=== PATIENT | female | born 1965 | race African-American/Black ===

== ENCOUNTER 2016-12-26 18:27 | Emergency (ER) | payer OTHER ==
[~2016-12-26] VITALS: Ht 154.9 cm; Wt 71.2 kg
[2016-12-26 18:52] VITALS: BP 135/85
[2016-12-26] MEDS ORDERED: NAPROXEN 500 MG TABLET PO STA (19:52)
[2016-12-26] MEDS ORDERED: HYDROcodone/APAP 5/325MG 1 TAB TABLET PO ONE (20:00)
[2016-12-26] MEDS ORDERED: TRAM-48 PO (20:03)
--- NOTE | 2016-12-26 20:04 | PHYS DOC ---
Past Medical History Past Medical History: No Pertinent History, CVA Past Surgical History: Hysterectomy, Other Additional Past Surgical Histo: NECK FUSION, ganglion cyst removal x2 Additional Information: 0.5ppd Alcohol Use: None Drug Use: None Adult General Chief Complaint Chief Complaint: MECHANICAL FALL HPI HPI Patient is a 51 year old female who presents with moderate right knee pain after falling down 6 steps, patient states the pain is worse when she is ambulating. Patient denies any loss of consciousness. Patient states left knee got stuck behind her when she fell. Review of Systems Review of Systems Constitutional: Denies fever or chills [] Eyes: Denies change in visual acuity, redness, or eye pain [] Musculoskeletal: Right knee pain Integument: Denies rash or skin lesions [] Neurologic: Denies headache, focal weakness or sensory changes [] Endocrine: Denies polyuria or polydipsia [] Allergies Allergies Allergies Coded Allergies Type Severity Reaction Last Updated Verified Penicillins Allergy Severe swelling 09/24/15 Yes Physical Exam Physical Exam Constitutional: Well developed, well nourished, no acute distress, non-toxic appearance. [] HENT: Normocephalic, atraumatic, bilateral external ears normal, oropharynx moist, no oral exudates, nose normal. [] Skin: Warm, dry, no erythema, no rash. [] Back: No tenderness, no CVA tenderness. [] Extremities: Right knee with no obvious edema and obvious ecchymosis, no obvious deformity. Tenderness diffusely throughout the right knee. Patient has a hard time with flexion of the knee. Negative Osman sign and negative Lamont's sign. Patient able to hold the knee straight issues. +2 right pedal pulse. Cap refill <2 seconds. sensation intact to the RLE Neurologic: Alert and oriented X 3, normal motor function, normal sensory function, no focal deficits noted. [] Psychologic: Affect normal, judgement normal, mood normal. [] Current Patient Data Vital Signs Vital Signs Date Time Temp Pulse Resp B/P (MAP) Pulse Ox O2 Delivery O2 Flow Rate FiO2 12/26/16 18:52 98.4 87 18 100 Room Air 98.4 EKG EKG [] Radiology/Procedures Radiology/Procedures Right knee x-rays interpreted by Dr. Arthur are negative for any acute findings, but noted for a bone ossicle Course & Med Decision Making Course & Med Decision Making Pertinent Labs and Imaging studies reviewed. (See chart for details) Right knee x-rays interpreted by Dr. Arthur are negative for any acute findings, noted for a bone ossicle Patient was placed in a knee immobilizer by the brain wave technician. Provided crutches. Neurovascular exam done by me post-immobilizer application is normal, cap refill less than 2 seconds. Ice elevation encouraged. Follow-up with orthopedic doctor in one week. Ultram for pain. Dragon Disclaimer Dragon Disclaimer This electronic medical record was generated, in whole or in part, using a voice recognition dictation system. Departure Departure Impression: Primary Impression: Fall down steps Additional Impression: Right knee sprain Disposition: HOME, SELF-CARE Condition: STABLE Referrals: UNKNOWN PCP NAME (PCP) AMY CHRISTIE II, MD Follow-up with orthopedic doctor provided in one week Patient Instructions: Fall Prevention and Home Safety, Knee Sprain Additional Instructions: You were seen for right knee sprain. Ice and elevate the extremity. Wear the immobilizer as needed and tolerated. You can bear weight to the affected extremity as tolerated. Follow-up with the provided orthopedic doctor in 1-2 weeks as needed. Scripts Tramadol Hcl (ULTRAM) 50 Mg Tablet 1 TAB PO Q6HRS, #30 TAB Prov: CHAPO MICHEL APRN 12/26/16 Problem Qualifiers Primary Impression: Fall down steps Encounter type: initial encounter Qualified Codes: W10.8XXA - Fall (on) ( from) other stairs and steps, initial encounter Additional Impression: Right knee sprain Encounter type: initial encounter Involved ligament of knee: unspecified ligament Qualified Codes: S83.91XA - Sprain of unspecified site of right knee , initial encounter CHAPO MICHEL [employer]PUT[employer]ER[employer] GENERALIST Dec 26, 2016 20:04
--- NOTE | 2016-12-27 08:42 | RAD ---
Right knee with patella, 4 views, 12/26/2016: History: Fall, pain No fracture or dislocation is identified. The periarticular soft tissues are unremarkable. IMPRESSION: No acute right knee abnormality is detected.
== END 2016-12-26 20:15 | disposition home or self-care (01) ==
LOC: ER 18:27
DX: S83.91XA Sprain of unspecified site of right knee, initial encounter (principal); F17.200 Nicotine dependence, unspecified, uncomplicated; Z98.1 Arthrodesis status; Z90.710 Acquired absence of both cervix and uterus; Z86.73 Personal history of transient ischemic attack (TIA), and cerebral infarction without residual deficits; Z88.0 Allergy status to penicillin; W10.9XXA Fall (on) (from) unspecified stairs and steps, initial encounter; Y93.89 Activity, other specified; Y92.89 Other specified places as the place of occurrence of the external cause; Y99.8 Other external cause status
CPT/HCPCS: 29505; 73564; 99284-25